=== PATIENT | male | born 1930 | race Caucasian/White ===

== ENCOUNTER 2017-08-05 06:25 | Day surgery (SDC) | payer MEDICARE, OTHER ==
[2017-08-05] VITALS (11 sets, daily range): BP systolic 122–166; BP diastolic 59–83
[~2017-08-05] VITALS: Ht 177.8 cm; Wt 62.8 kg
[2017-08-05] MEDS ORDERED: normal saline 1000ml 1,000 ML IV PRN (06:55)
[2017-08-05] MEDS ORDERED: ceFAZolin inj. 2,000 MG in normal saline soln 50 ML IV ONE (06:55)
[2017-08-05] MEDS ORDERED: ceFAZolin inj. 2,000 MG in normal saline 100ml IV soln 100 ML IV ONE (06:55)
[2017-08-05] MEDS ORDERED: DEXA0.5T PO (06:58)
[2017-08-05] MEDS ORDERED: HYDR-569 PO (06:58)
[2017-08-05] MEDS ORDERED: ONDA4TAB9 PO (06:58)
[2017-08-05] MEDS ORDERED: PROP10TA10 PO (06:58)
[2017-08-05] MEDS ORDERED: PROC10TA10 PO (06:58)
[2017-08-05] MEDS ORDERED: AFRIN NS (06:58)
[2017-08-05] MEDS ORDERED: ATOR40TA PO (06:58)
[2017-08-05 07:24] LABS: BASOPHILS % (AUTO) 0.2 % (0-1); EOSINOPHILS # (AUTO) 0.2 X10'3 (0-0.9); EOSINOPHILS % (AUTO) 1.5 % (0-6); HEMATOCRIT 36.4 % (42.0-52.0); HEMOGLOBIN 12.3 g/dl (14.0-17.9); LYMPHOCYTES # (AUTO) 1.7 X10'3 (1.1-4.8); LYMPHOCYTES % (AUTO) 15.6 % (21-51); MEAN CORPUSCULAR HEMOGLOBIN 32.6 PG (27.0-31.0); MEAN CORPUSCULAR HGB CONC 33.7 % (33.0-36.5); MEAN CORPUSCULAR VOLUME 96.7 FL (78-98); MEAN PLATELET VOLUME 6.2 FL (7.4-10.4); MONOCYTES # (AUTO) 0.8 X10'3 (0-0.9); MONOCYTES % (AUTO) 7.6 % (2-12); NEUTROPHILS # (AUTO) 8.3 X10'3 (1.8-7.7); NEUTROPHILS % (AUTO) 75.1 % (42-75); PLATELET COUNT 408 X10'3 (140-440); RED BLOOD COUNT 3.77 X10'6 (4.70-6.10); RED CELL DISTRIBUTION WIDTH 15.7 % (11.5-14.5)
[2017-08-05] MEDS ORDERED: iohexol 300 MG/1 ML 50ml polymer ONE (08:38)
[2017-08-05] MEDS ORDERED: LIDOcaine 1%/PF (10mg/ml) 5ml vial ONE (08:38)
[2017-08-05] MEDS ORDERED: fentaNYL/PF 50MCG/1 ML 2ML syringe IV PRN (08:45)
[2017-08-05] MEDS ORDERED: heparin sodium, porcine/PF 100unit/ml 5ML syringe ICATH ONE (08:45)
[2017-08-05] MEDS ORDERED: midazolam 2 mg/2 ml injection IV PRN (08:45)
[2017-08-05] MEDS ORDERED: LIDOcaine 1%/PF (10mg/ml) 5ml vial SQ ONE (08:45)
[2017-08-05] MEDS ORDERED: midazolam 2 mg/2 ml injection ONE (08:48)
[2017-08-05] MEDS ORDERED: fentaNYL/PF 50MCG/1 ML 2ML syringe ONE (08:48)
[2017-08-05] MEDS ORDERED: heparin sodium, porcine/PF 100unit/ml 5ML syringe ONE (08:48)
[2017-08-05] MEDS ORDERED: glucagon, human recombinant 1mg kit ONE (08:56)
[2017-08-05] MEDS ORDERED: glucagon, human recombinant 1mg kit IV ONE (09:10)
[2017-08-05] MEDS ORDERED: zinc oxide ointment 30gm tube TP PRN (11:05)
== END 2017-08-05 14:45 | disposition home or self-care (01) ==
LOC: SSTAY O 06:25
PROVIDERS: ATTEND Radiology Vascular & Interventional Radiology
DX: C76.0 Malignant neoplasm of head, face and neck (principal); Z43.1 Encounter for attention to gastrostomy; D02.3 Carcinoma in situ of other parts of respiratory system
CPT/HCPCS: 36415; 36561; 49440; 76937; 77001; 85025; 99152; 99153; A6219; C1788; C1894; J0690; J1610; J1642; J2001; J2250; J3010; J7030; Q9967; A4620